=== PATIENT | male | born 1960 | race Caucasian/White ===

== ENCOUNTER 2016-08-23 20:01 | Emergency (ER) | payer BC ==
[~2016-08-23] VITALS: Ht 172.7 cm; Wt 82.4 kg
[2016-08-23 20:26] LABS: HEMATOCRIT 47.7 % (38.0-50.0); MCH 29.5 PG (29.0-34.0); MCHC 34.4 G/DL (30.0-36.0); MCV 85.8 FL (86-99); MEAN PLAT.VOLUME 9.9 uM^3 (9.0-12.4); PLATELET COUNT 224 K/uL (156-360); RBC DIS.WIDTH-CV 11.4 % (11.8-14.6); RBC DIS.WIDTH-SD 35.8 % (39-53); RED BLOOD COUNT 5.56 M/uL (4.00-5.50); WHITE BLOOD COUNT 9.8 K/uL (4.1-10.2)
[2016-08-23 20:35] LABS: CHLORIDE 101 mEq/L (99-109); POTASSIUM 4.4 mEq/L (3.7-5.4); SODIUM 136 mEq/L (136-147)
[2016-08-23 20:37] LABS: GLUCOSE 231 mg/dL (70-99)
[2016-08-23 20:38] LABS: ANION GAP 10 MEQ/L (2-14)
[2016-08-23 20:40] LABS: ALKALINE PHOSPHATASE 73 IU/L (3-129)
[2016-08-23 20:41] LABS: GFR ESTIMATE (CALCULATED) > 59 mL/min/
[2016-08-23 20:42] LABS: UREA NITROGEN (BUN) 14 mg/dL (9-23)
[2016-08-23 21:16] LABS: LIPASE 62 U/L (1.0-51.0)
[2016-08-23 21:51] LABS: ADD MIUA? NO; BILIRUBIN NEGATIVE; BLOOD NEGATIVE; COLOR STRAW ((YELLOW)); GLUCOSE (STRIP) >=500; KETONES NEGATIVE; LEUKOCYTES NEGATIVE; NITRITE NEGATIVE; PROTEIN (STRIP) NEGATIVE; SPECIFIC GRAVITY 1.009 (1.000-1.030); UCUL ADDED? NO; UROBILINOGEN 0.2 MG/DL (0.2-1.0)
[2016-08-23 23:30] LABS: TROP-I INTERPRETATION NEGATIVE; TROPONIN-I < 0.01 ng/mL (0.0-0.30)
[2016-08-23 23:56] VITALS: BP 167/88
== END 2016-08-23 23:57 | disposition home or self-care (01) ==
LOC: EXP 20:01 → EME 20:01 → EXP 23:57
DX: R07.89 Other chest pain (principal); R73.9 Hyperglycemia, unspecified; R10.11 Right upper quadrant pain; Z88.1 Allergy status to other antibiotic agents; Z88.0 Allergy status to penicillin; Z88.2 Allergy status to sulfonamides
CPT/HCPCS: 71020; 76705; 80053; 81003; 83690; 84484; 85027; 93005; 99281; 99284